=== PATIENT | male | born 1980 | race Two or more races ===

== ENCOUNTER → 2022-01-10 | Outpatient (AMB) | payer MEDICAID, SELFPAY | END | disposition home or self-care (01) | PROVIDERS: PCP Specialist; Visit Provider Specialist | DX: I10 Essential (primary) hypertension (principal) ==

== ENCOUNTER 2024-09-30 21:37 | Emergency (ER) | payer MEDICAID, SELFPAY ==
[2024-09-30 22:00] VITALS: BP 106/70; PULSE 96; RESP 20; TEMP 37.7; O2SAT 99
[2024-09-30 22:10] VITALS: BMI 24.6
--- NOTE | 2024-09-30 22:11 | EDNOTE_ITS ---
ED SOB =RME/HPI General Chief Complaint: Shortness of Breath/Dyspnea Stated Complaint: HYPOXIC Time Seen by Provider: 09/30/24 22:12 Arrival date/time: 09/30/24 21:37 Limitations: no limitations RME / HPI RME / HPI Narrative: Dr. [facility] ED Evaluation: 44yo male with a history of CVA, trach and PEG tube, quadriplegia, chronic respiratory failure brought in from subacute presents to the ED for a chief complaint of hypoxia. Evidently, subacute nursing staff found the patient to be saturating at 70% on 45% FiO2. Patient's oxygen was increased to 70% and was suctioned. Upon ED arrival, patient is now back to 45% FiO2 and is saturating at 99%. No fevers reported. Full ROS is unobtainable due to the patient being intubated. Related Data Home Medications ?Medication ?Instructions ?Recorded ?Confirmed acetaminophen 325 mg tablet 2 tab feeding tube [id number] PRN Pain 01/28/18 07/02/19 (Tylenol) amantadine HCl 50 mg/5 mL oral 100 mg feeding tube BID 01/28/18 07/02/19 solution baclofen 10 mg tablet 0.5 tab feeding tube TID 06/0707/02/19 bethanechol chloride 10 mg tablet 10 mg feeding tube T ID 01/28/18 07/02/19 bisacodyl 10 mg rectal suppository 10 mg VT PRN PRN Co nstipation 01/28/18 07/02/19 (Dulcolax (bisacodyl)) multivitamin with minerals 1 tab QDAY 01/28/18 9 sodium phosphates 19 gram-7 1 applic VT PRN 08/19/18 1 09/02/18 gram/118 mL enema (Fleet Enema) dextran 70-hypromellose (PF) 0.1 1 drp ophthalmic (eye ) QDAY 07/02/19 07/02/19 %-0.3 % eye drops in a dropperette (Artificial Tears (PF)) Previous Rx's ?Medication ?Instructions ?Recorded dexlansoprazole 30 mg 30 mg feeding tube QDAY #0 c aps 07/12/19 capsule,biphase delayed release (Dexilant) ipratropium 0.5 mg-albuterol 3 mg 3 ml INH Q2HR PRN Sh ortness Of 07/12/19 (2.5 mg base)/3 mL nebulization Breath Or Wheeze #3 mL soln ipratropium 0.5 mg-albuterol 3 mg 3 ml INH Q6HRRT #3 m L 07/12/19 (2.5 mg base)/3 mL nebulization soln magnesium hydroxide 400 mg/5 mL 30 ml feeding tube QDA Y PRN 07/12/19 oral suspension (Milk of Magnesia) Constipation #0 mL midodrine 5 mg tablet 5 mg G-tube TID PRN Blood Pr essure 07/12/19 #15 tabs propranolol 20 mg tablet 1 tab feeding tube TID PRN B lood 07/12/19 Pressure #0 tabs psyllium 1 packet feeding tube QDAY # 0 ea 07/12/19 sennosides 8.6 mg tablet (senna) 2 tab feeding tube HS #0 tabs 07/12/19 Allergies Allergy/AdvReac Type Severity Reaction Status Date / Time No Known Allergies Allergy Verified 08/20/17 21:30 Review of Systems Review of Systems ROS Unobtainable: due to endotracheal tube ED Exam General Limitations: Present no limitations General appearance: Present alert, in no apparent distress and other (blinking his eyes and protruding his tongue) Head Head exam: Present atraumatic Eye Eye exam: Present normal appearance ENT ENT exam: Present normal exam, normal oropharynx and mucous membranes moist Neck Neck exam: Present trachea midline and other (trach in place) Chest Chest inspection: Present normal inspection and symmetric chest wall rise Respiratory Respiratory exam: Present normal lung sounds bilaterally Cardiovascular Cardiovascular exam: Present regular rate, normal rhythm and normal heart sounds Abdominal Exam Abdominal exam: Present soft, normal bowel sounds and other (has a PEG tube without any surrounding erythema) Extremities Exam Extremities exam: Present other (chronic contractures) Neurological Exam Neurological exam: Present alert and other (awake) Psychiatric Psychiatric exam: Present normal affect and normal mood Skin Skin exam: Present warm, dry, intact and normal color; Absent rash Course Quality Measures none Vital Signs Vital signs: Vital Signs Temperature 100 F 09/30/24 22:00 Pulse Rate 96 09/30/24 22:00 Respiratory Rate 20 09/30/24 22:00 Blood Pressure 106/70 09/30/24 22:00 Pulse Oximetry (%) 99 09/30/24 22:00 Oxygen Delivery Method Mechanical Ventilation 09/30/24 22:00 Fraction of Inspired Oxygen 45 09/30/24 22:00 Shortness of Breath / Dyspnea MDM Narrative MDM Narrative:: This patient needed suctioning and here in the emergency department he is in no acute distress. He seems to be at his baseline. Recommend no further treatment at this time. Patient data External records reviewed:: [facility] previous records Clinical information provided by:: none (nursing staff) Social determinants that could affect healthcare access:: housing (subacute resident) Patient has the following chronic illnesses:: CVA, chronic respiratory failure How is presenting disease/condition affected by chronic disease/condition?: caused by Evaluation data The following diagnostics were reviewed and interpreted by me:: other (specify) (none) Lab and/or radiology exams considered but not ordered:: none Interpretation Summary: none Medications / Prescriptions Medications or Prescriptions considered but not ordered:: none Medication administrations:: none Consultations Consultation(s) initiated? (list below): No Diagnosis Shortness of Breath Differential Diagnosis: other (mucus plug, tracheostomy malfunction, chronic respiratory failure) Most likely diagnosis given after review of the tests above:: see clinical impression below Admission Indicated Admission indicated?: not indicated Admission Request Was there a request for admission?: No Disposition Plan Disposition Plan: Discharge Discharge Attestation Discharge Attestation: The patient and all family members were given an opportunity to ask questions and understood the discharge instructions. Discharge instructions specifically effects, indications for sooner follow up or return to the emergency department, and the expected course of current diagnosis. Patient condition: Stable Discharge Plan Plan Patient Disposition: Xfer Jail Acute w/in Hosp Patient condition on transfer: Stable Prescriptions/Referrals Prescriptions/Med Rec: No Action Artificial Tears (PF) 0.1-0.3 % Dropperette 1 drp OPHTHALMIC (EYE) QDAY ipratropium-albuterol 0.5 mg-3 mg(2.5 mg base)/3 mL Solution For Nebulization 3 ml INH Q2HR PRN (Reason: Shortness Of Breath Or Wheeze) Qty: 3 0RF ipratropium-albuterol 0.5 mg-3 mg(2.5 mg base)/3 mL Solution For Nebulization 3 ml INH Q6HRRT Qty: 3 0RF midodrine 5 mg Tablet 5 mg G-tube TID PRN (Reason: Blood Pressure) Qty: 15 0RF sennosides [senna] 8.6 mg Tablet 2 tab feeding tube HS Qty: 0 0RF psyllium Packet 1 packet feeding tube QDAY Qty: 0 0RF magnesium hydroxide [Milk of Magnesia] 400 mg/5 mL Suspension 30 ml feeding tube QDAY PRN (Reason: Constipation) Qty: 0 0RF propranolol 20 mg Tablet 1 tab Feeding Tube TID PRN (Reason: Blood Pressure) Qty: 0 0RF Dexilant 30 mg Capsule,Biphase Delayed Releas 30 mg feeding tube QDAY Qty: 0 0RF amantadine HCl 50 mg/5 mL Solution 100 mg Feeding Tube BID acetaminophen [Tylenol] 325 mg Tablet 2 tab Feeding Tube [id number] PRN (Reason: Pain) bethanechol chloride 10 mg Tablet 10 mg Feeding Tube TID baclofen 10 mg Tablet 0.5 tab Feeding Tube TID bisacodyl [Dulcolax (bisacodyl)] 10 mg Suppository 10 mg VT PRN PRN (Reason: Constipation) multivitamin with minerals Tablet 1 tab QDAY Fleet Enema 19-7 gram/118 mL Enema 1 applic VT PRN Referrals: No Primary/Family,Physician [Referring Provider] - In 1 week Problem List Clinical Impression: Spasticity as late effect of cerebrovascular accident (CVA), Ventilator dependent Patient/Caregiver Discharge Instructions Additional Instructions: Patient at his baseline 1 suction here in the emergency department. No fever. The patient is stable to transfer back to subacute. Print Language: Chinese
--- NOTE | 2024-09-30 22:30 | PC.NURSE ---
Pt cont to rest without resp distress noted. Pt maintaining O2 sats 98 to 100% on FIO2 45%
[2024-09-30 23:28] VITALS: BP 104/65; PULSE 87; RESP 22; TEMP 36.9; O2SAT 100
== END 2024-10-01 00:22 | disposition skilled nursing facility (03) ==
PROVIDERS: Emergency Provider Emergency Medicine; PCP Specialist
DX: I69.398 Other sequelae of cerebral infarction (principal); Z99.11 Dependence on respirator [ventilator] status; J96.11 Chronic respiratory failure with hypoxia; Z93.0 Tracheostomy status; Z93.1 Gastrostomy status
CPT/HCPCS: 99282